=== PATIENT | female | born 1970 ===

== ENCOUNTER 2021-03-19 23:57 | Emergency (ER) | payer OTHER, SELFPAY | END 2021-03-20 02:05 | disposition home or self-care (01) | LOC: ERS 23:57 | DX: S16.1XXA Strain of muscle, fascia and tendon at neck level, initial encounter (principal); V59.9XXA Occupant (driver) (passenger) of pick-up truck or van injured in unspecified traffic accident, initial encounter; E11.9 Type 2 diabetes mellitus without complications; I10 Essential (primary) hypertension | CPT/HCPCS: 99284 ==